=== PATIENT | female | born 1985 | race Caucasian/White ===

== ENCOUNTER 2017-03-25 22:20 | Emergency (ER) | payer MEDICARE | END 2017-03-25 23:35 | disposition E | LOC: ER1 22:20 | DX: I46.9 Cardiac arrest, cause unspecified (principal); F17.200 Nicotine dependence, unspecified, uncomplicated; E11.9 Type 2 diabetes mellitus without complications; F31.9 Bipolar disorder, unspecified; Z86.19 Personal history of other infectious and parasitic diseases | CPT/HCPCS: 92950; 99285 ==